=== PATIENT | female | born 1960 | race Caucasian/White ===

== ENCOUNTER 2019-01-09 13:39 | Emergency (ER) | payer OTHER ==
[~2019-01-09] VITALS: Ht 170.2 cm; Wt 81.6 kg
--- NOTE | 2019-01-09 14:21 | RAD ---
Three-view right knee dated 01/09/2019. No comparison available. Clinical data indication: Pain after fall. Findings 3 views right knee show normal bony alignment. No displaced fracture. Mild tricompartmental hypertrophic change. No apparent joint effusion or loose body. IMPRESSION: 1. No acute radiographic abnormality. 2. Mild tricompartmental DJD. Electronically signed by: Juan Casarez MD (01/09/2019 2:18 PM) [facility]
--- NOTE | 2019-01-09 14:21 | RAD ---
Three-view left ankle dated 01/09/2019. No comparison available. Clinical data indication: Pain after fall. FINDINGS: 3 views left ankle show normal bony alignment. No displaced fracture. There is a small curvilinear bone fragment near the tip of the medial malleolus. Mild soft tissue swelling. The talar dome is intact. IMPRESSION: Small curvilinear bone fragment near the tip of the medial malleolus, indeterminate. This could be related to acute or remote ligamentous avulsion injury. Electronically signed by: Juan Casarez MD (01/09/2019 2:19 PM) [facility]
[2019-01-09] MEDS ORDERED: MELO7.5T29 PO (14:42)
--- NOTE | 2019-01-09 14:42 | PHYS DOC ---
Past History Past Medical History: Asthma, Hypertension, Hypothyroid, Other Past Surgical History: Other Smoking: Non-smoker Alcohol Use: Occasionally Drug Use: None Adult General Chief Complaint Chief Complaint: MECHANICAL FALL HPI HPI Patient is a 58-year-old female presents with left ankle and right knee pain after mechanical fall during a trail race approximately a week and a half ago. Patient still feels pain, also feels instability in the knee with going down steps. She feels that does better of regarding the ankle when wearing a compression sock. There is no numbness or tingling. No previous surgery on either the knee or the ankle. Pain is mild to moderate in intensity.[] Review of Systems Review of Systems Constitutional: Denies fever or chills [] Eyes: Denies change in visual acuity, redness, or eye pain [] HENT: Denies nasal congestion or sore throat [] Respiratory: Denies cough or shortness of breath [] Cardiovascular: No chest pain or palpitations[] GI: Denies abdominal pain, nausea, vomiting, bloody stools or diarrhea [] : Denies dysuria or hematuria [] Musculoskeletal: Denies back pain, see history of present illness[] Integument: Denies rash or skin lesions [] Neurologic: Denies headache, focal weakness or sensory changes [] Endocrine: Denies polyuria or polydipsia [] All other systems were reviewed and found to be within normal limits, except as documented in this note. Allergies Allergies Allergies Coded Allergies Type Severity Reaction Last Updated Verified No Known Drug Allergies 03/19/14 No Physical Exam Physical Exam Constitutional: Well developed, well nourished, no acute distress, non-toxic appearance. [] HENT: Normocephalic, atraumatic, bilateral external ears normal, oropharynx moist, no oral exudates, nose normal. [] Eyes: PERRLA, EOMI, conjunctiva normal, no discharge. [] Neck: Normal range of motion, no tenderness, supple, no stridor. [] Cardiovascular:Heart rate regular rhythm, no murmur [] Lungs & Thorax: Bilateral breath sounds clear to auscultation [] Abdomen: Not examined. [] Skin: Warm, dry, no erythema, no rash. [] Back: No tenderness, no CVA tenderness. [] Extremities: Patient's left ankle has full range of motion. Tenderness to palpation over the anterior patellar fibular ligament. No medial or lateral mall eolus tenderness. No base of the fifth metatarsal tenderness. No knee tenderness. A joint above and below were evaluated and were normal. Patient's right knee has an abrasion just inferior to the patella. Full active range of motion. No anterior or posterior drawer. No varus or valgus laxity. No joint line tenderness. Negative Dee Dee test. A joint above and below were evaluated and were normal. The other extremities show: No tenderness, no cyanosis, no clubbing, ROM intact, no edema. [] Neurologic: Alert and oriented X 3, normal motor function, normal sensory function, no focal deficits noted. [] Psychologic: Affect normal, judgement normal, mood normal. [] Current Patient Data Vital Signs Vital Signs Date Time Temp Pulse Resp B/P (MAP) Pulse Ox O2 Delivery O2 Flow Rate FiO2 01/09/19 13:57 98.3 90 22 96 Room Air EKG EKG [] Radiology/Procedures Radiology/Procedures PROCEDURE: ANKLE LEFT 3V Three-view left ankle dated 01/09/2019. No comparison available. Clinical data indication: Pain after fall. FINDINGS: 3 views left ankle show normal bony alignment. No displaced fracture. There is a small curvilinear bone fragment near the tip of the medial malleolus. Mild soft tissue swelling. The talar dome is intact. IMPRESSION: Small curvilinear bone fragment near the tip of the medial malleolus, indeterminate. This could be related to acute or remote ligamentous avulsion injury. PROCEDURE: KNEE RIGHT 3V Three-view right knee dated 01/09/2019. No comparison available. Clinical data indication: Pain after fall. Findings 3 views right knee show normal bony alignment. No displaced fracture. Mild tricompartmental hypertrophic change. No apparent joint effusion or loose body. IMPRESSION: 1. No acute radiographic abnormality. 2. Mild tricompartmental DJD.[] Course & Med Decision Making Course & Med Decision Making Pertinent Labs and Imaging studies reviewed. (See chart for details) ED course Patient arrived, was placed in bed, and tolerated exam well. She was transported to and from radiology with any complications. After the return of the imaging findings, these were discussed with the patient. Repeat examination of the medial malleolus was performed after the x-ray findings and patient has no tenderness, believe that to be an old injury. Offered knee immobilizer or ankle stirrup splint which the patient deferred. She was discharged from the emergency department in good condition with all questions answered. Medical decision making: There is no evidence of an acute fracture or dislocation. Given her knee feeling of instability, believe that there is a ligamentous or tendinous injury that does not show up on x-ray. Discussed with the patient the need for follow-up and possible MRI for further evaluation.[] Dragon Disclaimer Dragon Disclaimer This electronic medical record was generated, in whole or in part, using a voice recognition dictation system. Departure Departure: Impression: Primary Impression: Left ankle sprain Additional Impression: Right knee injury Disposition: HOME, SELF-CARE Condition: IMPROVED Referrals: COURTNEY CASILLAS DO (PCP) Follow-up in 2 days Patient Instructions: Ankle Sprain, Acute, with Phase I Rehab-Sports[facility], Knee Sprain Additional Instructions: Follow-up with your regular doctor in 2 days. You may need an MRI to further evaluate the ligaments and tendons within the knee given the buckling feeling that you are experiencing. Return to the ER if worsening pain or any other concerns. Scripts Meloxicam (MELOXICAM) 7.5 Mg Tablet 7.5 MG PO DAILY for PAIN, #20 TAB Prov: BRIGIDA HOUSE DO 01/09/19 Problem Qualifiers Primary Impression: Left ankle sprain Encounter type: initial encounter Involved ligament of ankle: anterior talofibular ligament Qualified Codes: S93.492A - Sprain of other ligament of left ankle, initial encounter Additional Impression: Right knee injury Encounter type: initial encounter Qualified Codes: S89.91XA - Unspecified injury of right lower leg, initial encounter BRIGIDA HOUSE DO January 09, 2019 14:42
[2019-01-09 14:48] VITALS: BP 141/88
== END 2019-01-09 14:49 | disposition home or self-care (01) ==
LOC: ER 13:39
DX: S93.402A Sprain of unspecified ligament of left ankle, initial encounter (principal); S80.211A Abrasion, right knee, initial encounter; J45.909 Unspecified asthma, uncomplicated; I10 Essential (primary) hypertension; E03.9 Hypothyroidism, unspecified; W17.89XA Other fall from one level to another, initial encounter; Y93.02 Activity, running; Y92.89 Other specified places as the place of occurrence of the external cause; Y99.8 Other external cause status
CPT/HCPCS: 73562; 73610; 99284

== ENCOUNTER 2019-10-15 16:13 | Emergency (ER) | payer OTHER ==
[~2019-10-15] VITALS: Ht 170.2 cm; Wt 80.0 kg
[~2019-10-15 16:13] MED LIST: MELO7.5T29 PO
[2019-10-15] MEDS ORDERED: METF500T16 PO (16:25)
[2019-10-15 16:56] LABS: BASO % 0 % (0-3); EOS # 0.2 x10^3/uL (0.0-0.7); EOS % 3 % (0-3); HEMATOCRIT 41.4 % (36.0-47.0); HEMOGLOBIN 13.9 g/dL (12.0-15.5); LYMPH # 1.8 x10^3/uL (1.0-4.8); LYMPH % 28 % (24-48); MEAN CORPUSCULAR HEMOGLOBIN 32 pg (25-35); MEAN CORPUSCULAR HGB CONC 34 g/dL (31-37); MEAN CORPUSCULAR VOLUME 96 fL (79-100); MONO # 0.5 x10^3/uL (0.0-1.1); MONO % 7 % (0-9); NEUT % 62 % (31-73); PLATELET COUNT 216 x10^3/uL (140-400); RED BLOOD COUNT 4.33 x10^6/uL (3.50-5.40); RED CELL DISTRIBUTION WIDTH 12.8 % (11.5-14.5); WHITE BLOOD COUNT 6.5 x10^3/uL (4.0-11.0)
[2019-10-15 17:05] LABS: CALCIUM 9.1 mg/dL (8.5-10.1); CREATININE 0.9 mg/dL (0.6-1.0); GFR 64.3; POTASSIUM 3.3 mmol/L (3.5-5.1)
[2019-10-15 17:11] LABS: ALBUMIN 3.4 g/dL (3.4-5.0); ALBUMIN/GLOBULIN RATIO 0.9 (1.0-1.7); TOTAL BILIRUBIN 0.4 mg/dL (0.2-1.0); TOTAL PROTEIN 7.4 g/dL (6.4-8.2)
[2019-10-15] MEDS ORDERED: IV NORMAL SALINE 1,000ML 1,000 ML IV ONE ×2 (17:15→17:45)
--- NOTE | 2019-10-15 17:35 | PHYS DOC ---
Past History Past Medical History: Asthma, Diabetes, Hypertension, Hypothyroid, Other (GAETANO FLOYD DO) Past Surgical History: Other (GAETANO FLOYD DO) Smoking: Non-smoker Alcohol Use: Occasionally Drug Use: None (GAETANO FLOYD DO) Adult General Chief Complaint Chief Complaint: BLOOD SUGAR PROBLEM HPI HPI Patient is a 59-year-old female who presented to ER today for evaluation of high blood sugar, frequent urination, thirsty, abdominal pain off and on for weeks. Patient denies any fever, no chest pain, no trouble breathing. Patient has history of diabetes, she is on metformin 500 mg twice a day. He has history of breast cancer in the past, she is in remission for 4 years now. She denies any headache, no fever, no chest pain. Patient denies any blood in her stool. (GAETANO FLOYD DO) Review of Systems Review of Systems Constitutional: Denies fever or chills [] Eyes: Denies change in visual acuity, redness, or eye pain [] HENT: Denies nasal congestion or sore throat [] Respiratory: Denies cough or shortness of breath [] Cardiovascular: No additional information not addressed in HPI [] GI: Positive for abdominal pain, NO nausea, vomiting, bloody stools or diarrhea [] : Denies dysuria or hematuria [] Musculoskeletal: Denies back pain or joint pain. POSITIVE FOR MUSCLE CRAMPING Integument: Denies rash or skin lesions [] Neurologic: Denies headache, focal weakness or sensory changes [] Endocrine: Denies polyuria or polydipsia [] All other systems were reviewed and found to be within normal limits, except as documented in this note. (GAETANO FLOYD DO) Current Medications Current Medications Current Medications Medications (Trade) Dose Ordered Sig/Jaswant Start Time Stop Time Status Last Admin Dose Admin Sodium Chloride 1,000 ml @ 1,000 mls/hr 1X ONCE 10/15/19 17:45 10/15/19 18:44 UNV (GAETANO FLOYD DO) Allergies Allergies Allergies Coded Allergies Type Severity Reaction Last Updated Verified No Known Drug Allergies 03/19/14 No (GAETANO FLOYD DO) Physical Exam Physical Exam Constitutional: Well developed, well nourished, no acute distress, non-toxic appearance. [] HENT: Normocephalic, atraumatic, bilateral external ears normal, oropharynx moist, no oral exudates, nose normal. [] Eyes: PERRLA, EOMI, conjunctiva normal, no discharge. [] Neck: Normal range of motion, no tenderness, supple, no stridor. [] Cardiovascular:Heart rate regular rhythm, no murmur [] Lungs & Thorax: Bilateral breath sounds clear to auscultation [] Abdomen: Bowel sounds normal, soft, There is tenderness in suprapubic area, no masses, no pulsatile masses. [] Skin: Warm, dry, no erythema, no rash. [] Back: No tenderness, no CVA tenderness. [] Extremities: No tenderness, no cyanosis, no clubbing, ROM intact, no edema. [] Neurologic: Alert and oriented X 3, normal motor function, normal sensory function, no focal deficits noted. [] Psychologic: Affect normal, judgement normal, mood normal. [] (GAETANO FLOYD DO) Current Patient Data Vital Signs Vital Signs Date Time Temp Pulse Resp B/P (MAP) Pulse Ox O2 Delivery O2 Flow Rate FiO2 10/15/19 17: 92 18 125/74 (91) 98 Room Air 10/15/19 16:21 98.2 Lab Results Laboratory Tests Test 10/15/19 16:24 10/15/19 16:34 Glucose (Fingerstick) 449 mg/dL (70-99) H White Blood Count 6.5 x10^3/uL (4.0-11.0) Red Blood Count 4.33 x10^6/uL (3.50-5.40) Hemoglobin 13.9 g/dL (12.0-15.5) Hematocrit 41.4 % (36.0-47.0) Mean Corpuscular Volume 96 fL (79-100) Mean Corpuscular Hemoglobin 32 pg (25-35) Mean Corpuscular Hemoglobin Concent 34 g/dL (31-37) Red Cell Distribution Width 12.8 % (11.5-14.5) Platelet Count 216 x10^3/uL (140-400) Neutrophils (%) (Auto) 62 % (31-73) Lymphocytes (%) (Auto) 28 % (24-48) Monocytes (%) (Auto) 7 % (0-9) Eosinophils (%) (Auto) 3 % (0-3) Basophils (%) (Auto) 0 % (0-3) Neutrophils # (Auto) 4.0 x10^3uL (1.8-7.7) Lymphocytes # (Auto) 1.8 x10^3/uL (1.0-4.8) Monocytes # (Auto) 0.5 x10^3/uL (0.0-1.1) Eosinophils # (Auto) 0.2 x10^3/uL (0.0-0.7) Basophils # (Auto) 0.0 x10^3/uL (0.0-0.2) Sodium Level 138 mmol/L (136-145) Potassium Level 3.3 mmol/L (3.5-5.1) L Chloride Level 97 mmol/L (98-107) L Carbon Dioxide Level 27 mmol/L (21-32) Anion Gap 14 (6-14) Blood Urea Nitrogen 14 mg/dL (7-20) Creatinine 0.9 mg/dL (0.6-1.0) Estimated GFR (Cockcroft-Gault) 64.3 BUN/Creatinine Ratio 16 (6-20) Glucose Level 448 mg/dL (70-99) H Calcium Level 9.1 mg/dL (8.5-10.1) Total Bilirubin 0.4 mg/dL (0.2-1.0) Aspartate Amino Transferase (AST) 67 U/L (15-37) H Alanine Aminotransferase (ALT) 65 U/L (14-59) H Alkaline Phosphatase 58 U/L (46-116) Total Protein 7.4 g/dL (6.4-8.2) Albumin 3.4 g/dL (3.4-5.0) Albumin/Globulin Ratio 0.9 (1.0-1.7) L Acetone Level Neg (NEG) (GAETANO FLOYD DO) EKG EKG [] (GAETANO FLOYD DO) Radiology/Procedures Radiology/Procedures [][address] [address] IMAGING REPORT Signed PATIENT: JF SOLIS ACCOUNT: [id number] : 1960 LOCATION: ER AGE: 59 SEX: F EXAM STATUS: REG ER ORD. PHYSICIAN: GAETANO FLOYD DO REASON: abdominal pain off and on for a week PROCEDURE: CT ABD PELV W/ IV CONTRST ONLY EXAM: CT Abdomen and Pelvis with IV contrast CLINICAL HISTORY: abdominal pain off and on for a week. COMPARISON: none TECHNIQUE: Helical CT of the abdomen and pelvis was performed following the administration of IV contrast. Axial, coronal and sagittal reformatted images were generated. ---PQRS compliance statement - One or more of the following individualized dose reduction techniques were utilized for this study: 1. Automated exposure control 2. Adjustment of the mA and/or kV according to patient size 3. Use of iterative reconstruction technique--- FINDINGS: Lower chest: Linear opacities lower lobes and lingula likely scarring/atelectasis. Abdomen and pelvis: Liver and biliary system: Hepatic hypoattenuation likely fatty liver. Gallbladder is mildly contracted. No biliary ductal dilatation. Spleen: Unremarkable Pancreas: Unremarkable Adrenal glands: Unremarkable Kidneys: Symmetric nephrograms. No focal renal lesion. No hydronephrosis. No hydroureter. Bladder is unremarkable. Lymph nodes/retroperitoneum: No abdominal or pelvic lymphadenopathy by size criteria although a few prominent iliac chain lymph nodes are seen. Vessels: Aorta is normal in caliber. Intermittent atherosclerotic calcifications are seen. Bowel/Peritoneal cavity: Moderate colonic stool content is seen. No small or large bowel dilatation. No evidence of bowel obstruction. Appendix is not seen. No abdominal or pelvic ascites. There is an adnexal grossly unremarkable. Abdominal wall: Small fat-containing periumbilical hernia is seen. Bladder: Unremarkable Bones: Degenerative changes of the spine are seen. No aggressive osseous lesion is seen. Degenerative changes of spine are seen. IMPRESSION: 1. Moderate colonic stool content is seen. No bowel obstruction. 2. No abdominal or pelvic lymphadenopathy by size criteria. 3. Hepatic hypoattenuation likely fatty liver. Electronically signed by: Brian Francisco MD (10/15/2019 6:06 PM) [id number] (GAETANO FLOYD DO) Course & Med Decision Making Course & Med Decision Making Pertinent Labs and Imaging studies reviewed. (See chart for details) [] (GAETANO FLOYD DO) Dragon Disclaimer Dragon Disclaimer This electronic medical record was generated, in whole or in part, using a voice recognition dictation system. (GAETANO FLOYD DO) Departure Departure: Impression: Primary Impression: Hyperglycemia Disposition: HOME, SELF-CARE Condition: STABLE Referrals: COURTNEY CASILLAS DO (PCP) Scripts Fluconazole (DIFLUCAN) 100 Mg Tablet 100 MG PO DAILY for yeast for 3 Days, #3 TAB Prov: VANESSA LAWS MD 10/15/19 GAETANO FLOYD DO Oct 15, 2019 17:35 VANESSA LAWS MD Oct 16, 2019 04:42
[2019-10-15] MEDS ORDERED: IOHEXOL 300 MG/ML 75 ML VIAL. IV ONE (17:45)
[2019-10-15 17:49] LABS: BACTERIA,URINE 0 /HPF (0-FEW); BILIRUBIN,URINE NEG (NEG); CLARITY,URINE HAZY; COLOR,URINE YELLOW; GLUCOSE,URINE 500 mg/dL (NEG); NITRITE,URINE NEG (NEG); RBC,URINE OCC /HPF (0-2); SQUAMOUS EPITHELIAL CELL,UR FEW /LPF; UROBILINOGEN,URINE 0.2 mg/dL (0.2 mg/dL)
--- NOTE | 2019-10-15 18:09 | RAD ---
EXAM: CT Abdomen and Pelvis with IV contrast CLINICAL HISTORY: abdominal pain off and on for a week. COMPARISON: none TECHNIQUE: Helical CT of the abdomen and pelvis was performed following the administration of IV contrast. Axial, coronal and sagittal reformatted images were generated. ---PQRS compliance statement - One or more of the following individualized dose reduction techniques were utilized for this study: 1. Automated exposure control 2. Adjustment of the mA and/or kV according to patient size 3. Use of iterative reconstruction technique--- FINDINGS: Lower chest: Linear opacities lower lobes and lingula likely scarring/atelectasis. Abdomen and pelvis: Liver and biliary system: Hepatic hypoattenuation likely fatty liver. Gallbladder is mildly contracted. No biliary ductal dilatation. Spleen: Unremarkable Pancreas: Unremarkable Adrenal glands: Unremarkable Kidneys: Symmetric nephrograms. No focal renal lesion. No hydronephrosis. No hydroureter. Bladder is unremarkable. Lymph nodes/retroperitoneum: No abdominal or pelvic lymphadenopathy by size criteria although a few prominent iliac chain lymph nodes are seen. Vessels: Aorta is normal in caliber. Intermittent atherosclerotic calcifications are seen. Bowel/Peritoneal cavity: Moderate colonic stool content is seen. No small or large bowel dilatation. No evidence of bowel obstruction. Appendix is not seen. No abdominal or pelvic ascites. There is an adnexal grossly unremarkable. Abdominal wall: Small fat-containing periumbilical hernia is seen. Bladder: Unremarkable Bones: Degenerative changes of the spine are seen. No aggressive osseous lesion is seen. Degenerative changes of spine are seen. IMPRESSION: 1. Moderate colonic stool content is seen. No bowel obstruction. 2. No abdominal or pelvic lymphadenopathy by size criteria. 3. Hepatic hypoattenuation likely fatty liver. Electronically signed by: Brian Francisco MD (10/15/2019 6:06 PM) [id number]
[2019-10-15] MEDS ORDERED: FLUCONAZOLE 100 MG TABLET. PO ONE (18:45)
[2019-10-15] MEDS ORDERED: INSULIN REGULAR 100 UNIT/ML 3ML VIAL. IV ONE (18:45)
[2019-10-15] MEDS ORDERED: IV RINGERS SOLUTION,LACTATED 1,000 ML IV ONE (18:45)
[2019-10-15] MEDS ORDERED: FLUC100T7 PO (18:46)
[2019-10-15 20:40] VITALS: BP 139/86
== END 2019-10-15 20:40 | disposition home or self-care (01) ==
LOC: ER 16:13
DX: E11.65 Type 2 diabetes mellitus with hyperglycemia (principal); J45.909 Unspecified asthma, uncomplicated; I10 Essential (primary) hypertension; E03.9 Hypothyroidism, unspecified
CPT/HCPCS: 36415; 74177; 80053; 81001; 82010; 82947; 85025; 86705; 86709; 86803; 87086; 87340; 96361; 96374; 99285; J1815; J7120; Q9967; J7030

== ENCOUNTER 2020-12-25 14:14 | Emergency (ER) | payer OTHER ==
[~2020-12-25] VITALS: Ht 170.2 cm; Wt 80.0 kg
[~2020-12-25 14:14] MED LIST changes: +FLUC100T7 PO; +METF500T16 PO
[2020-12-25 14:20] VITALS: BP 106/73
--- NOTE | 2020-12-25 14:40 | PHYS DOC ---
Past History Past Medical History: Asthma, Diabetes, Hypertension, Hypothyroid, Other Additional Past Medical Histor: Osteopenia. Past Surgical History: Other Smoking: Non-smoker Alcohol Use: Occasionally Drug Use: None General Adult EDM: Chief Complaint: HIP PAIN HPI: HPI: Patient is a 60-year-old female coming in for right hip pain. Patient states she fell when her croc was caught ant she slipped. states that her leg slipped outward, but she caught herself and did not land on her hip. Sister hip hurts worse with adduction. Is able to ambulate with pain. Pain currently 6 out of 10. No other injuries. Review of Systems: Review of Systems: All other systems within normal limits except for as noted in the HPI Allergies: Allergies: Allergies Coded Allergies Type Severity Reaction Last Updated Verified No Known Drug Allergies 12/25/20 No Physical Exam: PE: Constitutional: Well developed, well nourished, no acute distress, non-toxic appearance. [] HENT: Normocephalic, atraumatic, bilateral external ears normal, nose normal. [] Eyes: PERRLA, conjunctiva normal, no discharge. [] Neck: No rigidity, supple, no stridor. [] Cardiovascular: Regular rate and rhythm, brisk cap refill [] Lungs & Thorax: Non labored symmetric respirations, no tachypnea or respiratory distress [] Abdomen: Soft, nondistended. Skin: Warm, dry, no erythema, no rash. [] Back: Unremarkable Extremities: No deformities, range of motion grossly intact, no lower extremity edema. Right lower extremity. No pain with flexion of hip or knee, no pain with passive leg roll, pain elicited in anterior lateral proximal thigh with adduction. Palpable muscle spasm, nontense compartments Neurologic: Alert and oriented X 3, no focal deficits noted. [] Psychologic: Affect normal, judgement normal, mood normal. [] Current Patient Data: Vital Signs: Vital Signs Date Time Temp Pulse Resp B/P (MAP) Pulse Ox O2 Delivery O2 Flow Rate FiO2 12/25/20 14:20 97.8 94 16 106/73 (84) 93 EKG: EKG: [] Radiology/Procedures: Radiology/Procedures: Exam: Pelvis with right hip 2 views INDICATION: Right hip pain TECHNIQUE: Frontal view of the pelvis with frontal and frog-leg lateral views the right hip Comparisons: None FINDINGS: There is a small calcific density adjacent to the greater trochanter on frog-leg lateral view. No acute or healed fractures. Soft tissues are unremarkable. Joint spaces are well-maintained. IMPRESSION: Small calcific density adjacent to the greater trochanter seen on frog-leg lateral view. This may represent calcific tendinitis versus small avulsion fracture fragmen[] Heart Score: C/O Chest Pain: No Risk Factors: Risk Factors: DM, Current or recent (<one month) smoker, HTN, HLP, family history of CAD, obesity. Risk Scores: Score 0 - 3: 2.5% MACE over next 6 weeks - Discharge Home Score 4 - 6: 20.3% MACE over next 6 weeks - Admit for Clinical Observation Score 7 - 10: 72.7% MACE over next 6 weeks - Early Invasive Strategies Course & Med Decision Making: Course & Med Decision Making Pertinent Labs and Imaging studies reviewed. (See chart for details) [] Dragon Disclaimer: Dragon Disclaimer: This electronic medical record was generated, in whole or in part, using a voice recognition dictation system. Departure Departure: Impression: Primary Impression: Avulsion fracture of trochanter of right femur Disposition: HOME / SELF CARE / HOMELESS Condition: STABLE Referrals: COURTNEY CASILLAS DO (PCP) Patient Instructions: RICE - Routine Care for Injuries Scripts Meloxicam (MELOXICAM) 7.5 Mg Tablet 1 TAB PO PRN Q12HR PRN for PAIN for 10 Days, #20 TAB 0 Refills Prov: BOLIVAR SHAW MD 12/25/20 Cyclobenzaprine Hcl (CYCLOBENZAPRINE HCL) 5 Mg Tablet 1 TAB PO TID PRN PRN for MUSCLE SPASMS for 5 Days, #15 TAB Prov: BOLIVAR SHAW MD 12/25/20 BOLIVAR SHAW MD Dec 25, 2020 14:40
--- NOTE | 2020-12-25 15:40 | RAD ---
Exam: Pelvis with right hip 2 views INDICATION: Right hip pain TECHNIQUE: Frontal view of the pelvis with frontal and frog-leg lateral views the right hip Comparisons: None FINDINGS: There is a small calcific density adjacent to the greater trochanter on frog-leg lateral view. No acu te or healed fractures. Soft tissues are unremarkable. Joint spaces are well-maintained. IMPRESSION: Small calcific density adjacent to the greater trochanter seen on frog-leg lateral view. This may rep resent calcific tendinitis versus small avulsion fracture fragment. Electronically signed by: Deborah Pena MD (12/25/2020 3:38 PM) [facility]
[2020-12-25] MEDS ORDERED: CYCL5TAB PO (16:24)
[2020-12-25] MEDS ORDERED: MELO7.5T29 PO (16:24)
== END 2020-12-25 16:37 | disposition home or self-care (01) ==
LOC: ER 14:14
DX: S72.101A Unspecified trochanteric fracture of right femur, initial encounter for closed fracture (principal); J45.909 Unspecified asthma, uncomplicated; E11.9 Type 2 diabetes mellitus without complications; I10 Essential (primary) hypertension; E03.9 Hypothyroidism, unspecified; W01.0XXA Fall on same level from slipping, tripping and stumbling without subsequent striking against object, initial encounter; Y93.89 Activity, other specified; Y92.89 Other specified places as the place of occurrence of the external cause; Y99.8 Other external cause status
CPT/HCPCS: 73502; 99284

== ENCOUNTER 2021-11-27 07:29 | Emergency (ER) | payer OTHER ==
[~2021-11-27] VITALS: Ht 170.2 cm; Wt 74.0 kg
[~2021-11-27 07:29] MED LIST changes: +CYCL5TAB PO
--- NOTE | 2021-11-27 07:59 | PHYS DOC ---
Past History Past Medical History: Asthma, Diabetes, Hypertension, Hypothyroid, Other Additional Past Medical Histor: Osteopenia. Past Surgical History: Other Smoking: Non-smoker Alcohol Use: Occasionally Drug Use: None General Adult EDM: Chief Complaint: BREAST PROBLEM HPI: HPI: 61-year-old female coming in for right breast pain for the past 9 days. Patient has an appointment with her primary care provider in 3 hours but came to the emergency department because aspirin is not taking care of her pain. Patient has a history of estrogen positive breast cancer on her left breast. Patient says she has felt chills but is concerned that she has an infection. Patient says the pain feels like it is in the tissue and not in the ribs or in a long. Last mammogram 11 months ago. Review of Systems: Review of Systems: All other systems within normal limits except for as noted in the HPI Current Medications: Current Meds: Current Medications Medications (Trade) Dose Ordered Sig/Jaswant Start Time Stop Time Status Last Admin Dose Admin Acetaminophen/ Hydrocodone Bitart (Lortab 7.5/325) 1 tab 1X ONCE 11/27/21 08:00 11/27/21 08:01 UNV Allergies: Allergies: Allergies Coded Allergies Type Severity Reaction Last Updated Verified No Known Drug Allergies 12/25/20 No Physical Exam: PE: Constitutional: Well developed, well nourished, no acute distress, non-toxic appearance. [] HENT: Normocephalic, atraumatic, bilateral external ears normal, nose normal. [] Eyes: PERRLA, conjunctiva normal, no discharge. [] Neck: No rigidity, supple, no stridor. [] Cardiovascular: Regular rate and rhythm, brisk cap refill. Right chest wall and breast: Multiple areas of irregular tissue consistent with scarring, no fluctuant mass or well-defined mass [] Lungs & Thorax: Non labored symmetric respirations, no tachypnea or respiratory distress [] Abdomen: Soft, nondistended. Skin: Warm, dry, no erythema, no rash. [] Back: Unremarkable Extremities: No deformities, range of motion grossly intact, no lower extremity edema [] Neurologic: Alert and oriented X 3, no focal deficits noted. [] Psychologic: Affect normal, judgement normal, mood normal. [] EKG: EKG: [] Radiology/Procedures: Radiology/Procedures: [address] [address] IMAGING REPORT Signed PATIENT: JF SOLIS ACCOUNT: [id number] : 1960 LOCATION: ER AGE: 61 SEX: F EXAM STATUS: REG ER ORD. PHYSICIAN: BOLIVAR SHAW MD REASON: PAIN, SWELLING PROCEDURE: US BREAST RIGHT LTD EXAMINATION: Right breast ultrasound INDICATION: Patient presents with pain, swelling COMPARISON: None available the time of dictation. FINDINGS: Ultrasound at the 1 to 2:00 position, 3.5 to 4 cm deep to the nipple reveals normal-appearing fibroglandular breast tissue. No suspicious masses or architectural distortion. No suspicious abnormalities in the right axilla. IMPRESSION: No suspicious findings. If pain persist recommend full diagnostic workup starting with right breast mammogram and possibly followed with right breast ultrasound to be done in a outpatient setting. BI-RADS 2. Benign findings. Electronically signed by: Kyler Kenney DO (11/27/2021 8:32 AM) [id number] DICTATED AND SIGNED BY: KYLER KENNEY DO DATE: 11/27/21818 CC: BOLIVAR SHAW MD; COURTNEY CASILLAS DO ~ [] Heart Score: C/O Chest Pain: No Risk Factors: Risk Factors: DM, Current or recent (<one month) smoker, HTN, HLP, family h istory of CAD, obesity. Risk Scores: Score 0 - 3: 2.5% MACE over next 6 weeks - Discharge Home Score 4 - 6: 20.3% MACE over next 6 weeks - Admit for Clinical Observation Score 7 - 10: 72.7% MACE over next 6 weeks - Early Invasive Strategies Course & Med Decision Making: Course & Med Decision Making Pertinent Labs and Imaging studies reviewed. (See chart for details) [] Dragon Disclaimer: Dragon Disclaimer: This electronic medical record was generated, in whole or in part, using a voice recognition dictation system. Departure Departure: Impression: Primary Impression: Breast pain Disposition: HOME / SELF CARE / HOMELESS Condition: STABLE Referrals: COURTNEY CASILLAS DO (PCP) Patient Instructions: Chest Wall Pain BOLIVAR SHAW MD Nov 27, 2021 07:59
[2021-11-27] MEDS ORDERED: HYDROcodone/APAP 7.5/325MG 1 TAB TABLET PO ONE (08:00)
[2021-11-27 08:24] LABS: BASO % 1 % (0-3); EOS # 0.5 x10^3/uL (0.0-0.7); EOS % 9 % (0-3); HEMATOCRIT 39.6 % (36.0-47.0); HEMOGLOBIN 13.4 g/dL (12.0-15.5); LYMPH % 37 % (24-48); MEAN CORPUSCULAR HEMOGLOBIN 33 pg (25-35); MEAN CORPUSCULAR HGB CONC 34 g/dL (31-37); MEAN CORPUSCULAR VOLUME 97 fL (79-100); MONO # 0.5 x10^3/uL (0.0-1.1); MONO % 10 % (0-9); NEUT # 2.2 x10^3uL (1.8-7.7); NEUT % 43 % (31-73); PLATELET COUNT 255 x10^3/uL (140-400); RED BLOOD COUNT 4.08 x10^6/uL (3.50-5.40); RED CELL DISTRIBUTION WIDTH 12.8 % (11.5-14.5); WHITE BLOOD COUNT 5.3 x10^3/uL (4.0-11.0)
--- NOTE | 2021-11-27 08:35 | RAD ---
EXAMINATION: Right breast ultrasound INDICATION: Patient presents with pain, swelling COMPARISON: None available the time of dictation. FINDINGS: Ultrasound at the 1 to 2:00 position, 3.5 to 4 cm deep to the nipple reveals normal-appeari ng fibroglandular breast tissue. No suspicious masses or architectural distortion. No suspicious abnormalities in the right axilla. IMPRESSION: No suspicious findings. If pain persist recommend full diagnostic workup starting with ri ght breast mammogram and possibly followed with right breast ultrasound to be done in a outpatient se tting. BI-RADS 2. Benign findings. Electronically signed by: Francisco Kenney DO (11/27/2021 8:32 AM) [id number]
[2021-11-27 08:50] VITALS: BP 137/86
== END 2021-11-27 08:52 | disposition home or self-care (01) ==
LOC: ER 07:29
DX: N64.4 Mastodynia (principal); J45.909 Unspecified asthma, uncomplicated; E11.9 Type 2 diabetes mellitus without complications; I10 Essential (primary) hypertension; E03.9 Hypothyroidism, unspecified
CPT/HCPCS: 36415; 76642; 85025; 99284